=== PATIENT | female | born 1995 | race Caucasian/White ===

== ENCOUNTER 2018-04-06 12:06 | Inpatient (IN) | payer OTHER ==
[~2018-04-06] VITALS: Ht 157.5 cm; Wt 88.6 kg
[2018-04-06 13:42] VITALS: Ht 157.5 cm; Wt 88.6 kg
[2018-04-06] MEDS ORDERED: PREN-93 PO (13:42)
[2018-04-06 13:43] VITALS: BP 135/92; PULSE 18; RESP 18
[2018-04-06] MEDS ORDERED: METHYLERGONOVINE 0.2 MG INJ IM PRN (14:30)
[2018-04-06] MEDS ORDERED: IBUPROFEN 600 MG TAB PO PRN (14:30)
[2018-04-06] MEDS ORDERED: LIDOCAINE 1% (MPF) 30 ML INJ INJ PRN (14:30)
[2018-04-06] MEDS ORDERED: CARBOPROST 250 MCG INJ IM PRN (14:30)
[2018-04-06] MEDS ORDERED: AMPICILLIN 2 GM/NS (PMX) 100 ML IV ONE (14:30)
[2018-04-06] MEDS ORDERED: OXYTOCIN 30 UNITS/LR 500 ML IV SCH ×4 (14:30)
[2018-04-06] MEDS ORDERED: MISOPROSTOL 200 MCG TAB PR PRN (14:30)
[2018-04-06] MEDS ORDERED: BUTORPHANOL 2 MG INJ IV PRN (14:30)
[2018-04-06] MEDS ORDERED: OXYTOCIN 30 UNITS/LR 500 ML IV PRN (14:30)
[2018-04-06] MEDS ORDERED: MAGNESIUM SULFATE 4 GM/100 ML 100 ML IV ONE (15:00)
[2018-04-06] MEDS: LACTATED RINGER'S 1,000 ML IV SCH (15:26)
[2018-04-06] MEDS: MAGNESIUM SULFATE 20 GM/500 ML 500 ML IV SCH (17:40)
[2018-04-06] MEDS: AMPICILLIN 1 GM/NS (PMX) 50 ML IV SCH ×2 (19:15→23:09)
--- NOTE | 2018-04-06 22:49 | QN ---
Documentation Comment Her OB called concerning labor is protracted on Pitocin 2mu since 1500 VE /-2 which is less than reported which was /-2 membrane is bulging ARM revealed clear/light tinged mec pitocin will be continued slowly KASANDRA CROWELL MD Apr 06, 2018 22:49
[2018-04-07] MEDS: AMPICILLIN 1 GM/NS (PMX) 50 ML IV SCH ×3 (03:03→10:58)
[2018-04-07] MEDS: MAGNESIUM SULFATE 20 GM/500 ML 500 ML IV SCH ×3 (03:05→17:14)
[2018-04-07] MEDS: LACTATED RINGER'S 1,000 ML IV SCH ×3 (05:04→13:24)
--- NOTE | 2018-04-07 06:22 | PREAC ---
Date/Time of Note Date/Time of Note DATE: 04/07/18 TIME: 06: Anesthesia Eval and Record Evaluation Time Pre-Procedure Interview DATE: 04/07/18 TIME: 06:21 Age 22 Sex female NPO: 8 hrs Preoperative diagnosis in labor Planned procedure Labor epidural Past Medical History Past Medical History: Includes GI: Obesity Surgery & Anesthesia Issues No known issue Meds Anticoagulation: No Beta Eliza within 24 hr: No Reason Beta Eliza not given: Pt. not on B-Eliza Reported Medications Vit No.124/Iron/FA ( Vitamin Tablet) 1 Each Tablet, 1 EACH PO DAILY, TAB 04/06/18 Current Medications Lactated Ringer's 1,000 ml @ 125 mls/hr Q8H IV Last administered on 04/07/18at 05:04; Admin Dose 125 MLS/HR; Start 04/06/18 at 14:03 Ampicillin 50 ml @ 100 mls/hr Q4H IV Last administered on 04/07/18at 03:03; Admin Dose 100 MLS/HR; Start 04/06/18 at 18:30 Butorphanol Tartrate (Stadol) 2 mg Q2H PRN IV .PAIN; Start 04/06/18 at 14:30 Lidocaine (Xylocaine 1% (Mpf)) 30 ml ONCE PRN INJ .EPISIOTOMY; Start 04/06/18 at 14:30 Oxytocin/Lactated Ringer's 500 ml @ 500 mls/hr ONCE POST IV ; Start 04/06/18 at 14:30 Oxytocin/Lactated Ringer's 500 ml @ 125 mls/hr POST IV ; Start 04/06/18 at 14:30 Ibuprofen (Motrin) 600 mg ONCE PRN PO .PAIN 1-5; Start 04/06/18 at 14:30 Oxytocin/Lactated Ringer's 500 ml @ 0 mls/hr ONCE PRN IV .VAGINAL BLEEDING; Start 04/06/18 at 14:30 Methylergonovine Maleate (Methergine) 0.2 mg ONCE PRN IM .VAGINAL BLEEDING; Start 04/06/18 at 14:30 Carboprost Tromethamine (Hemabate) 250 mcg ONCE PRN IM .VAGINAL BLEEDING; Start 04/06/18 at 14:30 Misoprostol (Cytotec) 1,000 mcg ONCE PRN [place] .VAGINAL BLEEDING; Start 04/06/18 at 14:30 Oxytocin/Lactated Ringer's 500 ml @ 0 mls/hr FOR AUGMENTATION IV Last administered on 04/06/18at 17:33; Admin Dose 1 MLS/HR; Start 04/06/18 at 14:30 Oxytocin/Lactated Ringer's 500 ml @ 0 mls/hr FOR AUGMENTATION IV ; Start 04/06/18 at 14:30 Magnesium Sulfate 500 ml @ 50 mls/hr Q10H IV Last administered on 04/07/18at 03:05; Admin Dose 50 MLS/HR; Start 04/06/18 at 14:45 Meds reviewed: Yes Allergies Coded Allergies: No Known Allergy (Unverified , 04/06/18) Allergies Reviewed: Yes Labs/Studies Labs Reviewed: Reviewed by anesthesiologist Result Diagram: 04/06/18 1433 04/06/18 1433 Laboratory Tests 04/06/18 14:33 Blood Bank Test 04/06/18 14:33 Antibody Screen NEGATIVE Blood Type O POSITIVE Rh Immune Globulin Candidate NO test: Positive Pre-procedure Exam Last vitals Vital Signs Date Temp Pulse Resp B/P (MAP) Pulse Ox O2 O2 Flow FiO2 Time Delivery Rate 04/06/18 98.2 18 18 135/92 Room Air 13:43 (106) Airway: Adequate mouth opening Mallampati: Mallampati II Teeth: Normal Lung: Normal Heart: Normal ASA Physical Status ASA physical status: 2 Emergency: None Planned Anesthetic Neuraxial: Epidural Planned Pain Management Parenteral pain med Pre-operative Attestations Prior to commencing anesthesia and surgery, the patient was re-evaluated, there was verification of: *The patient's identity *The results of appropriate recent lab work and preoperative vital signs *The above evaluation not changing prior to induction *Anesthetic plan, risk benefits, alternative and complications discussed with patient/family; questions answered; patient/family understands, accepts and wishes to proceed. MARLEEN GARDINER MD Apr 07, 2018 06:22
[2018-04-07] MEDS ORDERED: FENTAnyl 2MCG/ML-ROPIV 0.2% 100 ML ONE (06:26)
[2018-04-07] MEDS ORDERED: FENTAnyl 2MCG/ML-ROPIV 0.2% 100 ML BAG EPI SCH (06:30)
[2018-04-07] MEDS ORDERED: ONDANSETRON 4 MG INJ IV PRN ×3 (06:30→16:00)
[2018-04-07] MEDS ORDERED: NALOXONE (0.4 MG/ML) INJ IV PRN ×2 (06:30→16:00)
[2018-04-07] MEDS ORDERED: DIPHENHYDRAMINE 50 MG INJ IV PRN ×3 (06:30→16:00)
[2018-04-07] MEDS ORDERED: EPHEDrine SULFATE 50 MG/5 ML SYG IV PRN (06:30)
[2018-04-07] MEDS ORDERED: ROPIVACAINE HCL ONE (07:00)
--- NOTE | 2018-04-07 14:28 | PREAC ---
Date/Time of Note Date/Time of Note DATE: 04/07/18 TIME: 14:27 Anesthesia Eval and Record Evaluation Time Pre-Procedure Interview DATE: 04/07/18 TIME: 14:27 Age 22 Sex female NPO: 8 hrs Preoperative diagnosis PIH Planned procedure C section Past Medical History Past Medical History: Includes GI: Obesity Surgery & Anesthesia Issues No known issue Meds Anticoagulation: No Beta Eliza within 24 hr: No Reason Beta Eliza not given: Pt. not on B-Eliza Reported Medications Vit No.124/Iron/FA ( Vitamin Tablet) 1 Each Tablet, 1 EACH PO DAILY, TAB 04/06/18 Current Medications Lactated Ringer's 1,000 ml @ 125 mls/hr Q8H IV Last administered on 04/07/18at 13:24; Admin Dose 125 MLS/HR; Start 04/06/18 at 14:03 Ampicillin 50 ml @ 100 mls/hr Q4H IV Last administered on 04/07/18at 10:58; Adm in Dose 100 MLS/HR; Start 04/06/18 at 18:30 Butorphanol Tartrate (Stadol) 2 mg Q2H PRN IV .PAIN; Start 04/06/18 at 14:30 Lidocaine (Xylocaine 1% (Mpf)) 30 ml ONCE PRN INJ .EPISIOTOMY; Start 04/06/18 at 14:30 Oxytocin/Lactated Ringer's 500 ml @ 500 mls/hr ONCE POST IV ; Start 04/06/18 at 14:30 Oxytocin/Lactated Ringer's 500 ml @ 125 mls/hr POST IV ; Start 04/06/18 at 14:30 Ibuprofen (Motrin) 600 mg ONCE PRN PO .PAIN 1-5; Start 04/06/18 at 14:30 Oxytocin/Lactated Ringer's 500 ml @ 0 mls/hr ONCE PRN IV .VAGINAL BLEEDING; Start 04/06/18 at 14:30 Oxytocin/Lactated Ringer's 500 ml @ 0 mls/hr FOR AUGMENTATION IV Last administered on 04/06/18at 17:33; Admin Dose 1 MLS/HR; Start 04/06/18 at 14:30 Oxytocin/Lactated Ringer's 500 ml @ 0 mls/hr FOR AUGMENTATION IV ; Start 04/06/18 at 14:30 Magnesium Sulfate 500 ml @ 50 mls/hr Q10H IV Last administered on 04/07/18at 13:06; Admin Dose 50 MLS/HR; Start 04/06/18 at 14:45 Naloxone HCl (Narcan) 0.1 mg Q2M PRN IV .RESP RATE; Start 04/07/18 at 06:30; Stop 04/08/18 at 06:29 Diphenhydramine HCl (Benadryl) 25 mg Q6H PRN IV .ITCHING; Start 04/07/18 at 06:30; Stop 04/08/18 at 06:29 Ondansetron HCl (Zofran Inj) 4 mg Q6H PRN IV .NAUSEA/VOMITING; Start 04/07/18 at 06:30; Stop 04/08/18 at 06:29 Fentanyl/ Ropivacaine 100 ml EPIDURAL INFUSION EPI Last administered on 04/07/18at 13:32; Admin Dose 100 ML; Start 04/07/18 at 06:30 Ephedrine Sulfate 5 mg PRN PRN IV BLOOD PRESSURE SUPPORT; Start 04/07/18 at 06:30 Oxytocin/Lactated Ringer's 500 ml @ 0 mls/hr ONCE PRN IV .VAGINAL BLEEDING; Start 04/07/18 at 14:30 Methylergonovine Maleate (Methergine) 0.2 mg ONCE PRN IM .VAGINAL BLEEDING; Start 04/07/18 at 14:30 Carboprost Tromethamine (Hemabate) 250 mcg ONCE PRN IM .VAGINAL BLEEDING; Start 04/07/18 at 14:30 Misoprostol (Cytotec) 1,000 mcg ONCE PRN MD .VAGINAL BLEEDING; Start 04/07/18 at 14:30 Meds reviewed: Yes Allergies Coded Allergies: No Known Allergy (Unverified , 04/06/18) Allergies Reviewed: Yes Labs/Studies Labs Reviewed: Reviewed by anesthesiologist Result Diagram: 04/06/18 1433 04/06/18 1433 Laboratory Tests 04/06/18 14:33 Blood Bank Test 04/06/18 14:33 Antibody Screen NEGATIVE Blood Type O POSITIVE Rh Immune Globulin Candidate NO test: Positive Studies: ECG (n/a), CXR (n/a) Pre-procedure Exam Last vitals Vital Signs Date Temp Pulse Resp B/P (MAP) Pulse Ox O2 O2 Flow FiO2 Time Delivery Rate 04/06/18 98.2 18 18 135/92 Room Air 13:43 (106) Airway: Adequate mouth opening Mallampati: Mallampati I Teeth: Normal Lung: Normal Heart: Normal ASA Physical Status ASA physical status: 2 Emergency: None Planned Anesthetic Neuraxial: Epidural Planned Pain Management Epidural Pre-operative Attestations Prior to commencing anesthesia and surgery, the patient was re-evaluated, there was verification of: *The patient's identity *The results of appropriate recent lab work and preoperative vital signs *The above evaluation not changing prior to induction *Anesthetic plan, risk benefits, alternative and complications discussed with patient/family; questions answered; patient/family understands, accepts and wishes to proceed. TIGRE ESTEVEZ MD Apr 07, 2018 14:28
[2018-04-07] MEDS ORDERED: METHYLERGONOVINE 0.2 MG INJ IM PRN ×2 (14:30→16:30)
[2018-04-07] MEDS ORDERED: OXYTOCIN 30 UNITS/LR 500 ML IV PRN ×2 (14:30→16:30)
[2018-04-07] MEDS ORDERED: MISOPROSTOL 200 MCG TAB PR PRN ×2 (14:30→16:30)
[2018-04-07] MEDS ORDERED: CARBOPROST 250 MCG INJ IM PRN ×2 (14:30→16:30)
[2018-04-07] MEDS ORDERED: CEFAZOLIN 2 GM/50 ML (PMX) 50 ML IVPB ONE (14:32)
[2018-04-07] MEDS ORDERED: KETOROLAC 30 MG INJ ONE (14:37)
[2018-04-07] MEDS ORDERED: morphine SULFATE/PF (10 MG/10 ML) INJ ONE (14:37)
[2018-04-07] MEDS ORDERED: METOCLOPRAMIDE 10 MG INJ ONE (14:37)
[2018-04-07] MEDS ORDERED: LIDOCAINE 1.5%/EPI MPF (SDV) 30 ML VIAL ONE (14:38)
--- NOTE | 2018-04-07 15:01 | PREOPHP ---
DATE OF ADMISSION: 04/06/2018 HISTORY OF PRESENT ILLNESS: This is a 22-year-old lady, 2, para 0 with 1 . Her EDC is 04/05/2018 at 40 and 1/7 weeks, admitted in early labor and for augmentation. She started to have contractions about 3 hours prior to admission. She had care by Dr. Cleaning at [facility] and the care was uneventful. PAST PERSONAL HISTORY: No history of diabetes, TB, asthma. ALLERGIES: NO ALLERGIES. SOCIAL HISTORY: The patient does not smoke. She does not drink. MEDICATIONS: She does not take any drugs except her: 1. Iron. 2. Vitamins. GYNECOLOGIC HISTORY: She had menarche at the age of 13, every 28 days interval, 3 to 4 days duration and moderate in amount. OBSTETRIC HISTORY: She is 2, para 0. She had 1 in 2007. FAMILY HISTORY: Noncontributory. REVIEW OF SYSTEMS: CARDIOVASCULAR: No chest pains. RESPIRATORY: No cough. GASTROINTESTINAL: No diarrhea, no vomiting. GENITOURINARY: No dysuria. PHYSICAL EXAMINATION: GENERAL: Reveals a conscious, coherent lady and in no acute distress. VITAL SIGNS: Blood pressure was ranging from 130 to 140/100, pulse rate 80 per minute, respirations 16 per minute. BREASTS, HEART AND LUNGS: Within normal limits. ABDOMEN: Soft, fundic height 38 cm. heart tones 140 per minute. PELVIC: On admission done by nurse revealed the cervix to be 3 to 4 cm dilated, 100% effaced, statio n -2 in cephalic presentation with the bag of water intact. EXTREMITIES: A 1+ pedal edema. ADMITTING DIAGNOSIS: A 40 and 1/7 weeks intrauterine in early labor and possible -induced hypertension. The plans of delivery were explained to the patient and to her partner and to her mother and all unde rstood everything totally. She had an ultrasound done and the estimated weight is 8 pounds and 8 ounces. The plans of delivery as vaginal delivery were explained to them. The alternative of C-s ection is explained to them. The risks of shoulder dystocia were explained to them as well. All und erstood everything totally. The patient desires to go for vaginal delivery. She was started on magn esium sulfate and she was ordered to have Pitocin augmentation. She had an artificial rupture of mem branes done by Dr. Ellis at 8:30 p.m. 04/06/2018 and at that time, she was 4 cm dilated and then on , I rechecked at 5:25 a.m. she was 4 to 5 cm, station 0. The scalp electrode and IUPC w as inserted. She was continued on Pitocin augmentation and then she was reevaluated at 11:38 a.m. on 04/07/2018. At this time, she is 8 cm dilatation, 0 with +2 caput. The patient was continued on Pi tocin augmentation. Around 1:30 p.m., the patient is still 8 cm with +2 caput and then she had a tem perature of 100.1. The patient was advised to have . The risks, benefits and alternatives to were explained to the patient and to her mother. The patient stated that she wanted to wait, so she waited for at least an hour and then she decided to go for with indication of arrest of dilatation, possible cephalopelvic disproportion and possible chorioamnionitis. Dictated By: MIK FOSTER/NTS Conf#: [id number] DID#: [id number] CC: GENEVA CLEANING MD;*EndCC*
[2018-04-07] MEDS ORDERED: morphine 2 MG INJ IV PRN ×2 (16:00)
[2018-04-07] MEDS ORDERED: morphine (1 MG/ML) 10ML SYRINGE IV PRN ×3 (16:00)
[2018-04-07] MEDS: KETOROLAC 30 MG INJ IV PRN (16:07)
[2018-04-07] MEDS ORDERED: OXYTOCIN 30 UNITS/LR 500 ML IV SCH (16:26)
[2018-04-07] MEDS ORDERED: LACTATED RINGER'S 1,000 ML IV SCH (16:26)
--- NOTE | 2018-04-07 16:26 | OPPN ---
Date/Time of Note Date/Time of Note DATE: 04/07/18 TIME: 16:24 Operative Report Planned Procedure Procedure date Apr 07, 2018 Procedure(s) PRIMARY CSECTION Performed by see signature line Automobile Mechanic Apprentice: KASANDRA CROWELL MD 2nd Automobile Mechanic Apprentice none Pre-procedure diagnosis 40 2/7 IUP PIH ARREST OF DILATATION [id number] Anesthesia Type: [id number] epidural Post-Procedure Post-procedure diagnosis 40 2/7 IUP PIH ARREST DILATATION Findings Live Baby GIRL, Apgars 9and 9, [id number] 8OZ 21 INCHES Estimated Blood Loss: 600 - 700 mls Specimen(s) none Grafts/Implant(s) PLACENTA Complication(s) none MIK SCHROEDER MD Apr 07, 2018 16:26
[2018-04-07] MEDS ORDERED: LANOLIN HPA 1 PKT TOP PRN (16:30)
[2018-04-07] MEDS ORDERED: METHYLERGONOVINE 0.2 MG TAB PO PRN (16:30)
[2018-04-07] MEDS ORDERED: HYDROCODONE/APAP (5/325) TAB PO PRN (16:30)
[2018-04-07] MEDS ORDERED: morphine 4 MG/ML VIAL IV PRN (18:24)
[2018-04-07] MEDS: morphine 2 MG INJ IV PRN (18:35)
--- NOTE | 2018-04-07 19:46 | PAC ---
Date/Time of Note Date/Time of Note DATE: 04/07/18 TIME: 19:45 Post-Anesthesia Notes Post-Anesthesia Note Last documented vital signs Vital Signs Date Temp Pulse Resp B/P (MAP) Pulse Ox O2 O2 Flow FiO2 Time Delivery Rate 04/06/18 98.2 18 18 135/92 98 Room Air 16:43 (106) Activity: WNL Respiratory function: WNL Cardiovascular function: WNL Mental status: Baseline Pain reasonably controlled: Yes Hydration appropriate: Yes Nausea/Vomiting absent: No TIGRE ESTEVEZ MD Apr 07, 2018 19:46
[2018-04-07 20:00] VITALS: BP 140/78; PULSE 89; RESP 18
[2018-04-07 21:00] VITALS: BP 152/75; PULSE 87; RESP 18
--- NOTE | 2018-04-07 21:12 | PAC ---
Date/Time of Note Date/Time of Note DATE: 04/07/18 TIME: 21:12 Post-Anesthesia Notes Post-Anesthesia Note Last documented vital signs Vital Signs Date Temp Pulse Resp B/P (MAP) Pulse Ox O2 O2 Flow FiO2 Time Delivery Rate 04/06/18 98.2 18 18 135/92 Room Air 13:43 (106) Activity: WNL Respiratory function: WNL Cardiovascular function: WNL Mental status: Baseline Pain reasonably controlled: Yes Hydration appropriate: Yes Nausea/Vomiting absent: Yes MARLEEN GARDINER MD Apr 07, 2018 21:12
[2018-04-07] MEDS: SENNA/DOCUSATE NA (8.6MG/50MG) TAB PO SCH (21:46)
[2018-04-07 22:00] VITALS: BP 139/66; PULSE 89; RESP 19
[2018-04-07 23:00] VITALS: BP 147/70; PULSE 89; RESP 18
[2018-04-08] VITALS (27 sets, daily range): BP systolic 119–152; BP diastolic 51–88; PULSE 74–98; RESP 16–85
--- NOTE | 2018-04-08 00:47 | OPPN ---
Date/Time of Note Date/Time of Note DATE: 04/08/18 TIME: 00:47 Anesthesia Follow up Anesthesia Follow up Last documented vital signs Vital Signs Date Temp Pulse Resp B/P (MAP) Pulse Ox O2 O2 Flow FiO2 Time Delivery Rate 04/08/18 98.8 86 18 142/72 96 Room Air 00:00 (95) Respiratory function: WNL Comments A 22 year female s/p duramorph for post op date POD #1 is fine. no pain, N/V, itching , or headache. no neural deficit TIGRE ESTEVEZ MD Apr 08, 2018 00:47
[2018-04-08] MEDS: MAGNESIUM SULFATE 20 GM/500 ML 500 ML IV SCH ×2 (03:26→12:47)
[2018-04-08] MEDS: KETOROLAC 30 MG INJ IV PRN ×2 (04:23→12:10)
[2018-04-08] MEDS: SENNA/DOCUSATE NA (8.6MG/50MG) TAB PO SCH ×2 (08:37→21:02)
[2018-04-08] MEDS: morphine 2 MG INJ IV PRN (08:39)
[2018-04-08] MEDS: LACTATED RINGER'S 1,000 ML IV SCH ×2 (13:00→21:00)
[2018-04-08] MEDS ORDERED: MAGNESIUM HYDROXIDE 30ML CUP PO ONE (14:00)
[2018-04-08] MEDS ORDERED: BISACODYL 10 MG SUPP PR ONE ×2 (14:00→22:00)
[2018-04-08] MEDS: FERROUS SULFATE (EC) 325 MG TAB PO SCH ×2 (14:17→21:02)
[2018-04-08] MEDS: HYDROCODONE/APAP (5/325) TAB PO PRN ×2 (16:31→21:02)
[2018-04-08] MEDS: IBUPROFEN 800 MG TAB PO PRN (18:06)
--- NOTE | 2018-04-08 20:29 | PN ---
Date/Time of Note Date/Time of Note DATE: 04/08/18 TIME: 20:28 Assessment/Plan VTE Prophylaxis Risk score (from Ns)>0 risk: 1 [place] [facility] [place] SCD contraindicated: low risk/ambulating Pharmacological prophylaxis: NA/contraindicated Pharm contraindication: low risk/ambulating Lines/Catheters IV Catheter Type ([facility] Peripheral IV Assessment/Plan Assessment/Plan POSTCSECTION DAY 1 CHRONIC IRON DEFICIENCY ANEMIA TRANSFUSE 2 UNITS OF PACK CELL ORDERED ADVANCE DIET TOLERATED CBC TOMORROW Result Diagram: 04/08/1837 04/08/1837 Results 24hrs Laboratory Tests Test 04/08/18 00:19 04/08/18 06:27 04/08/18 06:37 04/08/18 11:21 Magnesium Level 6.5 *H 6.8 *H 6.6 *H Lab Scanned Report REFERENCE LAB White Blood Count 15.7 #H Red Blood Count 3.01 #L Hemoglobin 7.1 #L Hematocrit 23.4 #L Mean Corpuscular 77.7 Volume Mean Corpuscular 23.6 L Hemoglobin Mean Corpuscular 30.3 L Hemoglobin Concent Red Cell 18.6 H Distribution Width Platelet Count 216 Mean Platelet 10.6 H Volume Immature 0.600 H Granulocytes % Neutrophils % 82.7 H Lymphocytes % 9.7 L Monocytes % 6.6 Eosinophils % 0.1 Basophils % 0.3 Nucleated Red 0.0 Blood Cells % Immature 0.090 H Granulocytes # Neutrophils # 13.0 H Lymphocytes # 1.5 Monocytes # 1.0 H Eosinophils # 0.0 Basophils # 0.0 Nucleated Red 0.0 Blood Cells # Sodium Level 130 L Potassium Level 4.0 Chloride Level 102 Carbon Dioxide 21 Level Anion Gap 7 Blood Urea 13 Nitrogen Creatinine 0.80 Est Glomerular > 60 Filtrat Rate mL/min Glucose Level 78 Calcium Level 7.0 L Hepatitis B NEGATIVE Surface Antigen Subjective 24 Hr Interval Summary Free Text/Dictation POST CSECTION DAY 1 COMPLAIN OF INCISIONAL PAINS GOOD URINE OUTPUT PASSING GAS PER RECTUM NO BOWEL MOVEMENT YET Exam/Review of Systems Exam Vitals Vital Signs Date Temp Pulse Resp B/P (MAP) Pulse Ox O2 O2 Flow FiO2 Time Delivery Rate 04/08/18 98.5 93 17 137/75 Room Air 18:40 (95) 04/08/18 95 12:00 Intake and Output 04/07/18 04/07/18 04/08/18 1515:00 23:00 07:00 IntakeIntake Total 984 ml 2650 ml 575 ml OutputOutput Total 300 ml 1300 ml 600 ml BalanceBalance 684 ml 1350 ml -25 ml Exam VITAL SIGNS STABLE: YES AFEBRILE: YES BREAST NOT ENGORGED, NON-TENDER, NO APPRECIABLE MASS: YES LUNGS CLEAR, NO RALES, WHEEZES, RHONCHI: YES SINUS RHYTHM WITHOUT MURMUR: YES ABDOMEN: NON-TENDER FUNDUS: BELOW UMBILICUS BOWEL SOUNDS: PRESENT UTERUS: FIRM INCISION (CLEAN, DRY, AND INTACT): YES LOCHIA: LIGHT DEEP TENDON REFLEXES: 0 EXTREMITIES: NO CALF TENDERNESS EDEMA SCALE: NONE Results Results 24hrs Laboratory Tests Test 04/08/18 00:19 04/08/18 06:27 04/08/18 06:37 04/08/18 11:21 Magnesium Level 6.5 *H 6.8 *H 6.6 *H Lab Scanned Report REFERENCE LAB White Blood Count 15.7 #H Red Blood Count 3.01 #L Hemoglobin 7.1 #L Hematocrit 23.4 #L Mean Corpuscular 77.7 Volume Mean Corpuscular 23.6 L Hemoglobin Mean Corpuscular 30.3 L Hemoglobin Concent Red Cell 18.6 H Distribution Width Platelet Count 216 Mean Platelet 10.6 H Volume Immature 0.600 H Granulocytes % Neutrophils % 82.7 H Lymphocytes % 9.7 L Monocytes % 6.6 Eosinophils % 0.1 Basophils % 0.3 Nucleated Red 0.0 Blood Cells % Immature 0.090 H Granulocytes # Neutrophils # 13.0 H Lymphocytes # 1.5 Monocytes # 1.0 H Eosinophils # 0.0 Basophils # 0.0 Nucleated Red 0.0 Blood Cells # Sodium Level 130 L Potassium Level 4.0 Chloride Level 102 Carbon Dioxide 21 Level Anion Gap 7 Blood Urea 13 Nitrogen Creatinine 0.80 Est Glomerular > 60 Filtrat Rate mL/min Glucose Level 78 Calcium Level 7.0 L Hepatitis B NEGATIVE Surface Antigen Medications Medication Current Medications Methylergonovine Maleate (Methergine) 0.2 mg Q6H PRN PO .VAGINAL BLEEDING; Start 04/07/18 at 16:30 Acetaminophen/ Hydrocodone Bitart ([place] (5/325)) 1 tab Q4H PRN PO .PAIN 4-6; Start 04/07/18 at 16:30 Acetaminophen/ Hydrocodone Bitart ([place] (5/325)) 2 tab Q4H PRN PO .PAIN 7-10 Last administered on 04/08/18 16:31; Admin Dose 2 TAB; Start 04/07/18 at 16:30 Ibuprofen (Motrin) 800 mg Q8 PRN PO MILD PAIN LEVEL 1-3 Last administered on 04/08/18 18:06; Admin Dose 800 MG; Start 04/07/18 at 16:30 Simethicone (Mylicon) 160 mg Q8H PRN PO .GAS Last administered on 04/08/18 16:31; Admin Dose 160 MG; Start 04/07/18 at 16:30 Senna/Docusate Sodium (Senokot-S) 1 tab BID PO Last administered on 04/08/18 08:37; Admin Dose 1 TAB; Start 04/07/18 at 21:00 Lanolin (Lanolin Hpa) 1 applic BEDSIDE MEDICATION PRN TOP .NIPPLES Last administered on 04/08/18 06:01; Admin Dose 1 APPLIC; Start 04/07/18 at 16:30 Diphtheria/ Tetanus/Acell Pertussis (Adacel) 0.5 ml ONCE ONCE IM* ; Start 04/10/18 at 09:00; Stop 04/10/18 at 09:01 Measles/Mumps/ Rubella Vaccine Live (Mmr Ii Vaccine) 0.5 ml ONCE ONCE SC* ; S tart 04/10/18 at 09:00; Stop 04/10/18 at 09:01 Oxytocin/Lactated Ringer's 500 ml @ 0 mls/hr ONCE PRN IV .VAGINAL BLEEDING; Start 04/07/18 at 16:30 Methylergonovine Maleate (Methergine) 0.2 mg ONCE PRN IM .VAGINAL BLEEDING; Start 04/07/18 at 16:30 Carboprost Tromethamine (Hemabate) 250 mcg ONCE PRN IM .VAGINAL BLEEDING; Start 04/07/18 at 16:30 Misoprostol (Cytotec) 1,000 mcg ONCE PRN [place] .VAGINAL BLEEDING; Start 04/07/18 at 16:30 Lactated Ringer's 1,000 ml @ 125 mls/hr Q8H IV ; Start 04/08/18 at 13:00 Ferrous Sulfate (Ferrous Sulfate (Ec)) 325 mg TID PO Last administered on 04/08/18at 14:17; Admin Dose 325 MG; Start 04/08/18 at 14:00 Magnesium Hydroxide (Milk Of Mag) 30 ml BID PO ; Start 04/08/18 at 22:00 Bisacodyl (Dulcolax Supp) 10 mg ONCE ONCE NH ; Start 04/08/18 at 22:00; Stop 04/08/18 at 22:01 MIK SCHROEDER MD Apr 08, 2018 20:29
[2018-04-08] MEDS: MAGNESIUM HYDROXIDE 30ML CUP PO SCH (22:00)
[2018-04-09] VITALS (7 sets, daily range): BP systolic 133–149; BP diastolic 78–105; PULSE 66–85; RESP 18–19
[2018-04-09] MEDS: HYDROCODONE/APAP (5/325) TAB PO PRN ×3 (00:45→18:12)
[2018-04-09] MEDS: IBUPROFEN 800 MG TAB PO PRN ×3 (03:15→22:34)
[2018-04-09] MEDS: LACTATED RINGER'S 1,000 ML IV SCH ×3 (05:00→21:00)
[2018-04-09] MEDS: FERROUS SULFATE (EC) 325 MG TAB PO SCH ×3 (08:51→22:34)
[2018-04-09] MEDS: SENNA/DOCUSATE NA (8.6MG/50MG) TAB PO SCH ×2 (09:00→21:00)
[2018-04-09] MEDS: MAGNESIUM HYDROXIDE 30ML CUP PO SCH ×2 (09:00→21:00)
--- NOTE | 2018-04-09 09:55 | OPR ---
DATE OF OPERATION: 04/07/2018 PREOPERATIVE DIAGNOSES: 40-2/7 weeks' intrauterine in labor, suspected macrosomia, chorioa mnionitis, arrest of dilatation, and -induced hypertension. POSTOPERATIVE DIAGNOSES: 40-2/7 weeks' intrauterine in labor, suspected macrosomia, chorio amnionitis, arrest of dilatation, and -induced hypertension plus atony. SURGEON: Claire Ramirez MD CLINICAL CASE MANAGER: Dr. Ellis. ANESTHESIA: Epidural. ANESTHESIOLOGIST: . OPERATION PERFORMED: Primary low transverse section. OPERATIVE TECHNIQUE: Under epidural anesthesia, the patient was prepped and draped in the usual [facility] ion for abdominal surgery. After checking for the effect of anesthesia, Pfannenstiel incision 10 cm skin incision was performed. The incision was carried from the skin up to the fascia. Upon opening the skin up to the fascia, small blood vessels were noted to be oozing and these were all cauterized. Fascia was opened transversely followed by splitting the muscles vertically and the peritoneum vert ically. Upon opening the abdominal cavity, the bladder blade was put in place. A small gianna was per formed from the serosa up to the endometrium on the lower uterine segment and the gianna was carried si deways with the aid of my 2 fingers. My left hand was inserted in the lower segment of the uterus an d the baby's head was delivered, 3+ caput was noted. Baby's airways were quickly suctioned of amniot ic fluid. There was 1 loop of tight cord around the baby's neck that needs to be released prior to t he delivery of the rest of the body of the baby. Cord was clamped and baby was handed to the NICU te am. Cord segment was obtained for blood gases. Cord blood was obtained. The placenta was delivered manually and complete. Manual exploration of the uterus revealed the uterus was exteriorized. The uterus was cleansed with wet lap sponge to make sure that no membranes were left behind. After correct sponge count, the uterus was closed in the usual fashion using #1 chromic for the first laye r, continuous locking suture was used followed by #1 chromic for the second layer, imbricating suture s were used. Bleeders were checked, and there was no bleeding noted. After checking for any bleeder s in which there were none, prior to closing the uterus was noted to be hypotonic. The uterus was ma ssaged and bimanually compressed. Methergine was ordered and Hemabate was ordered as well and then a fter 15 minutes, another dose of Hemabate was given and the uterus contracted. Then after checking f or any bleeders in which there were none, both tubes and ovaries were inspected. They were healthy l ooking. The broad ligaments were checked for any hematoma and there was none noted. The uterus was put back to the pelvic cavity. Once again, uterine incision was checked for any bleeder and there wa s no bleeding noted. After correct sponge, needle, and instrument count was confirmed by the scrub t ech and secretary receptionist, the abdomen was closed in the usual fashion using 0 Vicryl for the peritoneum, 0 Vicryl for the muscles, for the fascia 0 Vicryl continuous stitch was used followed by few figure-of- eight sutures for the subcutaneous tissue, it was closed with 3-0 Vicryl and the skin was closed with 3-0 Vicryl, subcuticular suture was used. The patient tolerated the procedure well. Estimated bloo d loss about 700 mL. Vital signs were stable during and after the procedure. She delivered a health y baby girl at 1458 hours 04/07/2018. 9 and 9, weighing 9 pounds 8 ounces, 4309 grams, 21-1/2 inches long. The placental culture was ordered and the placenta was sent to pathology. Dictated By: CLAIRE FOSTER/EUGENIE Conf#: [id number] DID#: [id number] CC: CLAIRE RAMIREZ MD;*End*
[2018-04-09] MEDS: LABETALOL 200 MG TAB PO SCH (15:57)
--- NOTE | 2018-04-09 18:54 | PN ---
Date/Time of Note Date/Time of Note DATE: 04/09/18 TIME: 18:53 Assessment/Plan VTE Prophylaxis Risk score (from Nsg)>0 risk: 1 SCD applied (from Ns): No SCD contraindicated: low risk/ambulating Pharmacological prophylaxis: NA/contraindicated Pharm contraindication: low risk/ambulating Lines/Catheters IV Catheter Type (from Nrsg): Peripheral IV Assessment/Plan Assessment/Plan POST CSECTION DAY 2 CHRONIC IRON DEFICIENCY ANEMIA HOME TOMORROW CBC TOMORROW COUNSELED INSTRUCTED PRESCRIPTION GIVEN FOR PAIN RETURN TO CLINIC IN 2 WEEKS CALL OFFICE IF THERE IS ANY PROBLEM OR CONCERN CONTINUE WITH VITAMINS OD AND FERROUS SULFATE 325MG PO TID DIET ADVISED Result Diagram: 04/09/18 0635 04/08/18 0637 Results 24hrs Laboratory Tests Test 04/09/18 06:35 White Blood Count 12.8 H Red Blood Count 3.72 #L Hemoglobin 9.4 #L Hematocrit 29.6 #L Mean Corpuscular Volume 79.6 Mean Corpuscular Hemoglobin 25.3 L Mean Corpuscular Hemoglobin Concent 31.8 L Red Cell Distribution Width 18.4 H Platelet Count 227 Mean Platelet Volume 10.3 Immature Granulocytes % 0.700 H Neutrophils % 72.8 Lymphocytes % 18.3 Monocytes % 7.7 Eosinophils % 0.2 Basophils % 0.3 Nucleated Red Blood Cells % 0.2 H Immature Granulocytes # 0.090 H Neutrophils # 9.3 H Lymphocytes # 2.3 Monocytes # 1.0 H Eosinophils # 0.0 Basophils # 0.0 Nucleated Red Blood Cells # 0.0 Subjective 24 Hr Interval Summary Free Text/Dictation POST CSECTION DAY 2 GOOD BOWEL MOVEMENT GOOD URINE OUTPUT FEELS LESS INCISIONAL PAINS Exam/Review of Systems Exam Vitals Vital Signs Date Temp Pulse Resp B/P (MAP) Pulse Ox O2 O2 Flow FiO2 Time Delivery Rate 04/09/18 85 18 149/89 Room Air 15:30 (109) 04/09/18 98.9 15:00 04/08/18 95 12:00 Intake and Output 04/08/18 04/08/18 04/09/18 1515:00 23:00 07:00 IntakeIntake Total 600 ml OutputOutput Total 2400 ml 1050 ml BalanceBalance -1800 ml -1050 ml Exam VITAL SIGNS STABLE: YES AFEBRILE: YES BREAST NOT ENGORGED, NON-TENDER, NO APPRECIABLE MASS: YES LUNGS CLEAR, NO RALES, WHEEZES, RHONCHI: YES SINUS RHYTHM WITHOUT MURMUR: YES ABDOMEN: NON-TENDER FUNDUS: BELOW UMBILICUS BOWEL SOUNDS: PRESENT UTERUS: FIRM INCISION (CLEAN, DRY, AND INTACT): YES LOCHIA: LIGHT DEEP TENDON REFLEXES: 0 EXTREMITIES: NO CALF TENDERNESS EDEMA SCALE: NONE Results Results 24hrs Laboratory Tests Test 04/09/18 06:35 White Blood Count 12.8 H Red Blood Count 3.72 #L Hemoglobin 9.4 #L Hematocrit 29.6 #L Mean Corpuscular Volume 79.6 Mean Corpuscular Hemoglobin 25.3 L Mean Corpuscular Hemoglobin Concent 31.8 L Red Cell Distribution Width 18.4 H Platelet Count 227 Mean Platelet Volume 10.3 Immature Granulocytes % 0.700 H Neutrophils % 72.8 Lymphocytes % 18.3 Monocytes % 7.7 Eosinophils % 0.2 Basophils % 0.3 Nucleated Red Blood Cells % 0.2 H Immature Granulocytes # 0.090 H Neutrophils # 9.3 H Lymphocytes # 2.3 Monocytes # 1.0 H Eosinophils # 0.0 Basophils # 0.0 Nucleated Red Blood Cells # 0.0 Medications Medication Current Medications Methylergonovine Maleate (Methergine) 0.2 mg Q6H PRN PO .VAGINAL BLEEDING; Start 04/07/18 at 16:30 Acetaminophen/ Hydrocodone Bitart ([place] (5/325)) 1 tab Q4H PRN PO .PAIN 4-6; Start 04/07/18 at 16:30 Acetaminophen/ Hydrocodone Bitart ([place] (5/325)) 2 tab Q4H PRN PO .PAIN 7-10 Last administered on 04/09/18at 18:12; Admin Dose 2 TAB; Start 04/07/18 at 16:30 Ibuprofen (Motrin) 800 mg Q8 PRN PO MILD PAIN LEVEL 1-3 Last administered on 04/09/18at 12:25; Admin Dose 800 MG; Start 04/07/18 at 16:30 Simethicone (Mylicon) 160 mg Q8H PRN PO .GAS Last administered on 04/08/18at 16:31; Admin Dose 160 MG; Start 04/07/18 at 16:30 Senna/Docusate Sodium (Senokot-S) 1 tab BID PO Last administered on 04/08/18at 21:02; Admin Dose 1 TAB; Start 04/07/18 at 21:00 Lanolin (Lanolin Hpa) 1 applic BEDSIDE MEDICATION PRN TOP .NIPPLES Last adminis tered on 04/08/18at 06:01; Admin Dose 1 APPLIC; Start 04/07/18 at 16:30 Diphtheria/ Tetanus/Acell Pertussis (Adacel) 0.5 ml ONCE ONCE IM* ; Start 04/10/18 at 09:00; Stop 04/10/18 at 09:01 Measles/Mumps/ Rubella Vaccine Live (Mmr Ii Vaccine) 0.5 ml ONCE ONCE SC* ; Start 04/10/18 at 09:00; Stop 04/10/18 at 09:01 Oxytocin/Lactated Ringer's 500 ml @ 0 mls/hr ONCE PRN IV .VAGINAL BLEEDING; Start 04/07/18 at 16:30 Methylergonovine Maleate (Methergine) 0.2 mg ONCE PRN IM .VAGINAL BLEEDING; Start 04/07/18 at 16:30 Carboprost Tromethamine (Hemabate) 250 mcg ONCE PRN IM .VAGINAL BLEEDING; Start 04/07/18 at 16:30 Misoprostol (Cytotec) 1,000 mcg ONCE PRN MT .VAGINAL BLEEDING; Start 04/07/18 at 16:30 Lactated Ringer's 1,000 ml @ 125 mls/hr Q8H IV ; Start 04/08/18 at 13:00 Ferrous Sulfate (Ferrous Sulfate (Ec)) 325 mg TID PO Last administered on 04/09/18at 12:25; Admin Dose 325 MG; Start 04/08/18 at 14:00 Magnesium Hydroxide (Milk Of Mag) 30 ml BID PO ; Start 04/08/18 at 22:00 Labetalol HCl (Normodyne) 200 mg BID PO Last administered on 04/09/18at 15:57; Admin Dose 200 MG; Start 04/09/18 at 16:00 MIK SCHROEDER MD Apr 09, 2018 18:54
[2018-04-10] MEDS: LABETALOL 200 MG TAB PO SCH ×2 (01:21→08:30)
[2018-04-10 04:10] VITALS: BP 141/81; PULSE 72; RESP 19
[2018-04-10] MEDS: LACTATED RINGER'S 1,000 ML IV SCH (05:00)
[2018-04-10] MEDS: HYDROCODONE/APAP (5/325) TAB PO PRN (05:22)
[2018-04-10 08:30] VITALS: BP 131/76; PULSE 77; RESP 20
[2018-04-10] MEDS: SENNA/DOCUSATE NA (8.6MG/50MG) TAB PO SCH (08:30)
[2018-04-10] MEDS: FERROUS SULFATE (EC) 325 MG TAB PO SCH ×2 (08:30→13:09)
[2018-04-10] MEDS: MAGNESIUM HYDROXIDE 30ML CUP PO SCH (08:31)
[2018-04-10] MEDS ORDERED: DIPHTH/TET/ACEL PERTUSS (ADULT) 0.5 ML VIAL IM* ONE (09:00)
[2018-04-10] MEDS ORDERED: MEASLES,MUMPS,RUBELLA VACCINE INJ SC* ONE (09:00)
[2018-04-10] MEDS: IBUPROFEN 800 MG TAB PO PRN (11:55)
[2018-04-10 12:03] VITALS: BP 143/80; PULSE 85; RESP 18
[2018-04-10 14:00] VITALS: BP_SYST 130; BP_SYST 135; BP_DIAS 76; RESP 20
== END 2018-04-10 16:50 | disposition home or self-care (01) | DRG 786 ==
LOC: OBT 12:06 → L-D 12:10 → OBT 14:00 → L-D 14:04 → PP1 04-07 20:00
PROVIDERS: ADMIT Obstetrics & Gynecology; ATTEND Obstetrics & Gynecology
PROC: 3E033VJ Introduction of Other Hormone into Peripheral Vein, Percutaneous Approach (ICD-10-PCS; 2018-04-07)
PROC: 10D00Z1 Extraction of Products of Conception, Low, Open Approach (ICD-10-PCS; principal; 2018-04-07 14:30)
DX: O48.0 Post-term pregnancy (principal); O41.1230 Chorioamnionitis, third trimester, not applicable or unspecified; Z3A.40 40 weeks gestation of pregnancy; O13.4 Gestational [pregnancy-induced] hypertension without significant proteinuria, complicating childbirth; O36.63X0 Maternal care for excessive fetal growth, third trimester, not applicable or unspecified; Z37.0 Single live birth
CPT/HCPCS: 36415; 36430; 36600; 62319; 76815; 80048; 80053; 82803; 83735; 84560; 85025; 85384; 85610; 85730; 86592; 86850; 86900; 86901; 86920; 87070; 87340; 88307; 90715; 99464; G0463; J0290; J0690; J1885; J2210; J2270; J2274; J2405; J2590; J2765; J3010; J3475; J7120; P9016